=== PATIENT | female | born 1970 | race Caucasian/White ===

== ENCOUNTER → 2017-07-20 | Outpatient (CLI) | payer OTHER ==
[~2017-07-20] MED LIST: Multiple Vitam1 EAC1 PO; Percocet 7.5-31 EACH PO; SULTRIDS PO; Ultram50 MG PO
[2017-07-22 03:51] LABS: Source ENDOCER/CERV
== END | disposition home or self-care (01) ==
LOC: LAB 12:30
PROVIDERS: Nurse Practitioner
DX: Z01.419 Encounter for gynecological examination (general) (routine) without abnormal findings (principal)
CPT/HCPCS: G0145

== ENCOUNTER 2019-08-29 13:00 | Emergency (ER) | payer OTHER ==
[~2019-08-29] VITALS: Ht 162.6 cm; Wt 68.0 kg
[2019-08-29] MEDS ORDERED: LEVSOD50 PO (13:10)
[2019-08-29] MEDS ORDERED: OMEP20ER PO (13:10)
[2019-08-29] MEDS ORDERED: Norco 7.5-3251 EACH PO (13:24)
[2019-08-29] MEDS ORDERED: Robaxin-750750 MG PO (13:24)
== END 2019-08-29 14:17 | disposition home or self-care (01) ==
LOC: ER 13:00
DX: S49.92XA Unspecified injury of left shoulder and upper arm, initial encounter (principal); M62.838 Other muscle spasm; G62.9 Polyneuropathy, unspecified; D69.3 Immune thrombocytopenic purpura; Z79.899 Other long term (current) drug therapy; W10.9XXA Fall (on) (from) unspecified stairs and steps, initial encounter
CPT/HCPCS: 73030; 99283-25

== ENCOUNTER → 2019-09-07 | Outpatient (CLI) | payer OTHER ==
[~2019-09-07] MED LIST changes: +LEVSOD50 PO; +Norco 7.5-3251 EACH PO; +OMEP20ER PO; +Robaxin-750750 MG PO
== END | disposition home or self-care (01) ==
LOC: LAB EV 12:09 → LAB SHORT 12:09
DX: R05 Cough (principal)
CPT/HCPCS: U0002

== ENCOUNTER 2020-01-18 16:54 | Emergency (ER) | payer OTHER ==
[~2020-01-18] VITALS: Ht 157.5 cm; Wt 68.0 kg
[2020-01-18 17:36] LABS: BASOPHILS PERCENT AUTO 1 % (0-2); EOSINOPHILS ABSOLUTE AUTO 0.02 K/mm3 (0.00-0.68); EOSINOPHILS PERCENT AUTO 0 % (0-6); Hematocrit 46.8 % (33.0-51.0); Hemoglobin 15.9 g/dL (11.5-16.0); IMMATURE GRAN ABSOLUTE AUTO 0.03 K/mm3 (0.00-0.10); IMMATURE GRAN PERCENT AUTO 0 % (0-1); LYMPHOCYTES ABSOLUTE AUTO 5.51 K/mm3 (0.84-5.20); LYMPHOCYTES PERCENT AUTO 51 % (21-46); MONOCYTES PERCENT AUTO 6 % (4-13); Mean Corpuscular HGB 32.1 pg (26.0-34.0); Mean Corpuscular Volume 95 fL (80-100); NEUTROPHILS ABSOLUTE AUTO 4.56 K/mm3 (1.96-9.15); NEUTROPHILS PERCENT AUTO 42 % (41-73); Platelet Count 155 K/mm3 (150-400); RDW Coefficient Variation 12.3 % (11.7-14.2); RDW Standard Deviation 42.5 fL (35.1-46.3); Red Blood Cell Count 4.95 M/mm3 (3.80-5.20); White Blood Cell Count 10.92 K/mm3 (4.00-11.30)
[2020-01-18 17:37] LABS: Mean Platelet Volume 13.3 fL (9.1-12.4)
[2020-01-18 18:06] LABS: Alanine Aminotransfer (ALT/SGP 69 U/L (12-78); Albumin/Globulin Ratio 0.9 (0.8-1.8); Alk Phos 101 U/L (50-136); Anion Gap 8 mmol/L (6-16); Aspartate Aminotrans (AST/SGOT 64 U/L (12-37); Bilirubin, Total 0.2 mg/dL (0.1-1.0); Blood Urea Nitrogen 2 mg/dL (8-24); Bun/Creatinine Ratio 4.1 (12.0-20.0); CO2, Blood 25 mmol/L (21-32); Calcium, Blood 9.3 mg/dL (8.5-10.1); Chloride, Blood 101 mmol/L (98-108); Creatinine, Blood 0.49 mg/dL (0.40-1.00); Globulin, Blood 4.3 g/dL (2.2-4.0); Glomerular Filtration Rate >60 (60-); Glucose, Blood 118 mg/dL (70-99); Sodium, Blood 134 mmol/L (136-145); Total Protein, Blood 8.3 g/dL (6.4-8.2)
[2020-01-18 18:09] LABS: Source, Urine Clean Catch
[2020-01-18 18:19] LABS: Bilirubin, Urine Neg (Neg); Blood, Urine Neg (Neg); Glucose Qualitative, Urine Neg (Neg); Ketones, Urine Neg (Neg); Leukocyte Esterase, Urine Neg (Neg); Nitrite, Urine Neg (Neg); Protein, Urine 1+ (Neg); Urobilinogen, Urine NORM (Normal)
[2020-01-18 18:20] LABS: Appearance, Urine Clear (Clear); Color, Urine Yellow (P-Yellow)
[2020-01-18 21:26] LABS: Troponin I 0.021 ng/mL (0.000-0.040)
[2020-01-18] MEDS ORDERED: CHLO25 PO (22:02)
[2020-01-18] MEDS ORDERED: ONDA4ODT MM (22:03)
== END 2020-01-18 22:22 | disposition home or self-care (01) ==
LOC: ER 16:54
PROVIDERS: Emergency Medicine; Physician Assistant
DX: F10.10 Alcohol abuse, uncomplicated (principal); E86.0 Dehydration; R07.9 Chest pain, unspecified; R11.2 Nausea with vomiting, unspecified; Z79.899 Other long term (current) drug therapy; G62.9 Polyneuropathy, unspecified; F17.200 Nicotine dependence, unspecified, uncomplicated
CPT/HCPCS: 36415; 80053; 83690; 83735; 84484; 85025; 93005; 93010; 96361; 96374; 96375; 99283-25; J2060; J2405; J7030; J7120

== ENCOUNTER → 2020-04-06 | Outpatient (CLI) | payer OTHER ==
[~2020-04-06] MED LIST changes: +CHLO25 PO; +ONDA4ODT MM
== END | disposition home or self-care (01) ==
LOC: LAB EV 16:05 → LAB SHORT 16:05
DX: R05 Cough (principal); Z20.828 Contact with and (suspected) exposure to other viral communicable diseases
CPT/HCPCS: U0003

== ENCOUNTER → 2020-05-17 | Outpatient (CLI) | payer OTHER | END | disposition home or self-care (01) | LOC: LAB 12:33 | PROVIDERS: Nurse Practitioner | DX: Z01.419 Encounter for gynecological examination (general) (routine) without abnormal findings (principal) | CPT/HCPCS: G0145 ==

== ENCOUNTER 2022-01-06 09:14 | Day surgery (SDC) | payer OTHER ==
[~2022-01-06] VITALS: Ht 154.9 cm; Wt 69.1 kg
[2022-01-06] MEDS ORDERED: ABILIFY MYCITE2 M2 (09:33)
[2022-01-06] MEDS ORDERED: LOMAIRA8 MG (09:33)
[2022-01-06] MEDS ORDERED: Lisinopril2.5 MG (09:34)
[2022-01-06] MEDS ORDERED: BRINTELLIX5 MG (09:34)
[2022-01-06] MEDS ORDERED: BACLOFEN5 M1 (09:35)
[2022-01-06] MEDS ORDERED: Atarax10 MG (09:35)
[2022-01-06] MEDS ORDERED: CATAPRES-TTS 11 EAC1 (09:35)
== END 2022-01-06 12:00 | disposition home or self-care (01) ==
LOC: ORSCSDS 09:14
PROVIDERS: Internal Medicine Gastroenterology
PROC: 0DBM8ZX Excision of Descending Colon, Via Natural or Artificial Opening Endoscopic, Diagnostic (ICD-10-PCS; principal; 2022-01-06 10:30)
DX: Z12.11 Encounter for screening for malignant neoplasm of colon (principal); D12.4 Benign neoplasm of descending colon; I10 Essential (primary) hypertension; K57.30 Diverticulosis of large intestine without perforation or abscess without bleeding; D75.839 Thrombocytosis, unspecified; E66.9 Obesity, unspecified; E03.9 Hypothyroidism, unspecified; Z68.30 Body mass index [BMI] 30.0-30.9, adult; Z87.891 Personal history of nicotine dependence; Z79.899 Other long term (current) drug therapy
CPT/HCPCS: 88305; J2704; J7120

== ENCOUNTER 2023-04-12 08:52 | Emergency (ER) | payer OTHER ==
[~2023-04-12] VITALS: Ht 157.5 cm; Wt 85.7 kg
[~2023-04-12 08:52] MED LIST changes: +ABILIFY MYCITE2 M2; +ARIPIPRAZOLE10 M4 PO; +Adipex-P37.5 M1 PO; +Atarax10 MG; +BACLOFEN5 M1; +BRINTELLIX20 MG PO; +BRINTELLIX5 MG; +Baclofen20 MG PO; +CATAPRES-TTS 11 EAC1; +EUTHYROX75 MC1 PO; +Hydroxyzine HCl50 MG PO; +LOMAIRA8 MG; +Lisinopril2.5 MG; +METO25ER PO; +NEURONTIN300 MG PO; +Prinivil10 MG PO
[2023-04-12 09:50] VITALS: BP 131/91
[2023-04-12] MEDS ORDERED: Norco 7.5-3251 EACH PO (09:53)
== END 2023-04-12 09:56 | disposition home or self-care (01) ==
LOC: ER 08:52
DX: S22.31XA Fracture of one rib, right side, initial encounter for closed fracture (principal); F17.200 Nicotine dependence, unspecified, uncomplicated; W01.190A Fall on same level from slipping, tripping and stumbling with subsequent striking against furniture, initial encounter; Z79.899 Other long term (current) drug therapy; Z79.890 Hormone replacement therapy
CPT/HCPCS: 99282

== ENCOUNTER → 2024-07-05 | Outpatient (CLI) | payer OTHER ==
[2024-07-12 16:06] LABS: HPV HIGH RISK BY TMA Not Detected; HPV SOURCE Cervical
== END ==
LOC: LAB SHORT 17:19 → LAB 17:19
PROVIDERS: Family Medicine
DX: Z12.4 Encounter for screening for malignant neoplasm of cervix (principal)
CPT/HCPCS: 87624; G0123

== ENCOUNTER 2024-10-06 09:25 | Day surgery (SDC) | payer OTHER ==
[~2024-10-06] VITALS: Ht 154.9 cm; Wt 80.9 kg
[~2024-10-06 09:25] MED LIST changes: +CeFAZolin Sodium 2,000 MG VIAL ONE; +Lidocaine 1%-Epineph 1:100000 20 ML MDV ONE; +Lidocaine HCl 2% 10 ML SDA ONE
[2024-10-06] MEDS ORDERED: LISI20 PO (09:46)
[2024-10-06] MEDS ORDERED: Dexamethasone Sodium Phosphate 4 MG/ML 5ML VIAL ONE (10:03)
[2024-10-06] MEDS ORDERED: Lidocaine HCl/Pf 1% 5 ML VIAL ONE (10:03)
[2024-10-06] MEDS ORDERED: NS 500 ML IV ONE (10:18)
[2024-10-06] MEDS ORDERED: FentaNYL Citrate 50 MCG/ML 2 ML Injection ONE ×2 (10:35→11:59)
[2024-10-06] MEDS ORDERED: propofoL 20 ML IV ONE (10:35)
[2024-10-06] MEDS ORDERED: Ketorolac Tromethamine 30mg Vial ONE (10:35)
[2024-10-06] MEDS ORDERED: Ondansetron HCl 2 MG / ML 2ML Vial ONE (10:39)
[2024-10-06] MEDS ORDERED: Dexamethasone Sod Phos 10 MG/ML 1ML VIAL ONE (10:39)
[2024-10-06] MEDS ORDERED: Midazolam HCl 1MG / ML 2ML Vial ONE (11:04)
--- NOTE | 2024-10-06 11:55 | NUR ---
10/06/24 Kurt5 Whit Thayer5: CARE TRANSFERRED TO [facility]
[2024-10-06] MEDS ORDERED: HYDROmorphone HCl/Pf 1MG SYR ONE (12:20)
--- NOTE | 2024-10-06 12:48 | NUR ---
10/06/24 1248 Kathleen Velazco RECEIVED REPORT FROM [facility] AND [facility] PATIENT [id number]. RATES PAIN 5/10 BUT STATES PAIN IS TOLERABLE. PATIENT MOVED TO RECLINER. RIGHT ARM ELEVATED AND ICE PACK PLACED. RIGHT FINGERS PINK, WARM AND DRY. RIGHT FINGERS CAP REFILL <3 SECONDS. UNABLE TO ASSESS RIGHT RADIAL PULSE DUE TO DRESSING
[2024-10-06] MEDS ORDERED: HYDROcodone 5-APAP 325 TAB ONE ×2 (12:52→12:54)
[2024-10-06 13:13] VITALS: BP 101/71
== END 2024-10-06 13:20 | disposition home or self-care (01) ==
LOC: ORSCSDS 09:25
PROVIDERS: Orthopaedic Surgery
PROC: 0LN70ZZ Release Right Hand Tendon, Open Approach (ICD-10-PCS; principal; 2024-10-06 10:45)
PROC: 0R9N3ZZ Drainage of Right Wrist Joint, Percutaneous Approach (ICD-10-PCS; principal; 2024-10-06 10:45)
DX: M65.321 Trigger finger, right index finger (principal); M65.311 Trigger thumb, right thumb; M65.331 Trigger finger, right middle finger; M65.341 Trigger finger, right ring finger; M65.351 Trigger finger, right little finger; K21.9 Gastro-esophageal reflux disease without esophagitis; I10 Essential (primary) hypertension; E03.9 Hypothyroidism, unspecified; F43.10 Post-traumatic stress disorder, unspecified; Z87.891 Personal history of nicotine dependence; Z79.899 Other long term (current) drug therapy
CPT/HCPCS: 93005; 93010; A9270; J0690; J1100; J1171; J1885; J2003; J2250; J2405; J2704; J3010; J7040

== ENCOUNTER 2024-12-15 11:45 | Day surgery (SDC) | payer OTHER ==
[~2024-12-15] VITALS: Ht 154.9 cm; Wt 72.6 kg
[~2024-12-15 11:45] MED LIST changes: -CeFAZolin Sodium 2,000 MG VIAL ONE; +LISI20 PO; -Lidocaine 1%-Epineph 1:100000 20 ML MDV ONE; -Lidocaine HCl 2% 10 ML SDA ONE; +NS 500 ML IV ONE
[2024-12-15] MEDS ORDERED: Lidocaine HCl 2% 10 ML SDA ONE (12:04)
[2024-12-15] MEDS ORDERED: BELBUCA75 MCG BC (12:18)
[2024-12-15] MEDS ORDERED: NS 500 ML IV ONE (12:38)
[2024-12-15] MEDS ORDERED: CeFAZolin Sodium 1000 mg Vial ONE (12:41)
[2024-12-15] MEDS ORDERED: Midazolam HCl 1MG / ML 2ML Vial ONE (12:46)
[2024-12-15] MEDS ORDERED: HYDROmorphone HCl/Pf 1MG SYR ONE (13:35)
[2024-12-15 13:49] VITALS: BP 92/69
[2024-12-15] MEDS ORDERED: HYDROcodone 5-APAP 325 TAB ONE (14:07)
--- NOTE | 2024-12-15 14:33 | NUR ---
12/15/24 1433 RayoMatthew rader PT REPORTS MANAGEABLE LEVEL OF PAIN AND DENIES NAUSEA AT THIS TIME. PT AGREEABLE TO D/C HOME.
== END 2024-12-15 14:32 | disposition home or self-care (01) ==
LOC: ORSCSDS 11:45
PROVIDERS: Orthopaedic Surgery
PROC: 0LN50ZZ Release Right Lower Arm and Wrist Tendon, Open Approach (ICD-10-PCS; principal; 2024-12-15 13:00)
DX: M65.4 Radial styloid tenosynovitis [de Quervain] (principal); I10 Essential (primary) hypertension; Z79.899 Other long term (current) drug therapy; R22.2 Localized swelling, mass and lump, trunk
CPT/HCPCS: 36415; 85025; 85610; 85730; A9270; J0690; J1171; J2003; J2250; J2704; J7040